=== PATIENT | male | born 1965 | race Caucasian/White ===

== ENCOUNTER 2022-12-11 16:44 | Outpatient (CLI) | payer OTHER, SELFPAY | END 2022-12-11 16:45 | disposition home or self-care (01) | LOC: AMB 12-14 12:37 | PROVIDERS: Visit Provider Family Medicine | DX: K92.0 Hematemesis (principal) | CPT/HCPCS: A0425; A0429 ==

== ENCOUNTER 2022-12-11 17:10 | Emergency (ER) | payer OTHER, SELFPAY ==
[2022-12-11 17:19] VITALS: BP 166/99; PULSE 96; TEMP 36.3; O2SAT 95; BMI 22.6
--- NOTE | 2022-12-11 17:44 | ED.GENADULT ---
HPI - General Adult General Chief complaint: Nausea/Vomiting Stated complaint: Vomiting Blood Time Seen by Provider: 12/11/22 17:23 Source: patient Mode of arrival: ambulatory Limitations: no limitations History of Present Illness HPI narrative: 57-year-old male presenting to the ER today complaining of hematemesis. States he has been vomiting for the last 3 days, about 3 times per day and also been having multiple episodes of diarrhea daily. Today he had a vomiting episode and there was specks of blood in his vomitus. He states that he ?does not know a lot of things but knows that if there is blood in your vomit, that is not good?. He denies any fevers or chills. He denies any dizziness or lightheadedness. He is not having any chest pain or shortness of breath. He states that 3 days ago he stopped his gabapentin cold turkey because he ran out of his prescription. He states that he takes 300 mg tablets, 8 tablets per day. 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 He also has hypertension and takes amitriptyline and atorvastatin. He denies any sick contacts or recent travel. States that since stopping the gabapentin he simply feels nauseated all the time. Looks like the patient last picked up 300 tablets of gabapentin 300 mg on October 26 and this was written as a 30 day supply.. Related Data Home Medications Medication Instructions Recorded Confirmed amitriptyline 50 mg tablet PO 12/11/22 atorvastatin 20 mg tablet 20 mg PO DAILY 12/11/22 12/11/22 gabapentin 300 mg capsule PO 12/11/22 Previous Rx's Medication Instructions Recorded gabapentin 300 mg capsule 600 mg (2 x 300 mg) PO QID 5 days 12/11/22 #40 caps Allergies Allergy/AdvReac Type Severity Reaction Status Date / Time No Known Drug Allergies Allergy Verified 12/11/22 17:23 Review of Systems Status of ROS: Reports: 10 or more systems reviewed and unremarkable except as noted in History and below Exam Narrative: Exam Narrative: Well-nourished well-developed patient in no acute distress. Alert and oriented x3. Answers questions appropriately. Mood and affect are appropriate. Thoughts are goal oriented and rational. No tangential or magical thinking noted. Patient speaks in full sentences without needing to catch his breath. HEENT: Pupil is round reactive to light on the left. 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 Extraocular muscles of the left are intact. Conjunctivae is moist without any icterus noted on the left. Dry mucous membranes. Posterior pharynx is normal. Neck is soft . Cardiovascular: Heart is regular rate and rhythm S1 and S2 are present without any murmurs. Lungs: Clear to auscultation bilaterally no wheezes rhonchi or rales are appreciated. Patient takes deep breaths without any discomfort. Abdomen: Soft and nontender nondistended with normal bowel sounds. Extremities: Bilateral lower extremities are without edema. Skin: Well perfused without any obvious rashes. Const: Vital Signs, click to edit/add: Vital Signs - 24 hr 12/11/22 17:19 Temperature 97.4 F L Pulse Rate [Pulse Oximeter] 96 Blood Pressure [Ri ght Upper Arm] 166/99 H Pulse Oximetry 95 Oxygen Delivery Me thod Room Air Course Course Hospital Course: Patient received a L of normal saline IV Zofran. 300 mg of gabapentin was also given. CBC unremarkable. Sodium slightly low, carbon dioxide slightly low. Lactate was elevated at 5.3. AST minimally elevated. Albumin and total protein slightly elevated. Alcohol elevated at 0.12.- patient does tell me that he had a beer and a shot of Pal Beam today. Patient received a total of 2 L of normal saline and Zofran. A repeat lactate was down to 5.2. He was feeling significantly better. He did not have any vomiting episodes while he was here. We discussed going forward I recommend that he refrain from drinking alcohol. I have also prescribed him a few days of gabapentin until he can follow up with primary care provider. Vital Signs Vital signs: Initial Vital Signs Temperature 97.4 F L 12/11/22 17:19 Temperature Source Temporal Artery Scan 12/11/22 17:19 Pulse Rate 96 12/11/22 17:19 Blood Pressure 166/99 H 12/11/22 17:19 Blood Pressure Mean 121 H 12/11/22 17:19 Blood Pressure Position Sitting 12/11/22 17:19 Pulse Oximetry 95 12/11/22 17:19 Oxygen Delivery Method Room Air 12/11/22 17:19 Vital Signs Temperature 97.4 F L 12/11/22 17:19 Pulse Rate 96 12/11/22 17:19 Blood Pressure 166/99 H 12/11/22 17:19 Pulse Oximetry 95 12/11/22 17:19 Oxygen Delivery Method Room Air 12/11/22 17:19 Temperature 97.4 F L 12/11/22 17:19 Pulse Rate 96 12/11/22 17:19 Blood Pressure 166/99 H 12/11/22 17:19 Pulse Oximetry 95 12/11/22 17:19 Oxygen Delivery Method Room Air 12/11/22 17:19 Medical Decision Making MDM Narrative Medical decision making narrative: 57-year-old male with vomiting, probable gabapentin withdrawal, elevated lactate alcohol use. Treated per above. Patient will be sent home with a prescription for gabapentin today and instructed to follow up with primary care provider. Recommended to refrain from alcohol use given his elevated lactate. Lab Data Lab results reviewed: Yes I reviewed the patient's lab results Labs: Lab Results 12/11/22 12/11/22 Range/Units 17:48 19:34 WBC 6.56 (4.50-11.00) K/uL RBC 4.70 (4.30-5.90) m/uL Hgb 15.3 (13.5-17.5) gm/dL Hct 45.1 (37.0-53.0) % MCV 96 (80-100) fL MCH 33 (26-34) pg MCHC 34 (32-36) gm/dL RDW Coeff of [place] 15.9 H (11.5-15.5) % Plt Count 176 (140-440) K/uL Neut % (Auto) 62.1 (42.0-72.0) % Lymph % (Auto) 28.0 (20-44) % [place] % (Auto) 8.1 (0.0-11.0) % Eos % (Auto) 1.1 (0.0-7.0) % Baso % (Auto) 0.5 (0.0-3.0) % Neut # (Auto) 4.08 (1.7-7.0) K/uL Lymph # (Auto) 1.84 (0.90-2.90) K/uL [place] # (Auto) 0.50 (0.00-0.90) K/UL Eos # (Auto) 0.07 (0.00-0.50) K/uL Baso # (Auto) 0.03 (0.00-0.30) K/uL ESR 7 (2-15) mm/hr Sodium 134 L (135-149) mmol/L Potassium 3.8 (3.6-5.1) mmol/L Chloride 98 (96-114) mmol/L Carbon Dioxide 18 L (20-32) mmol/L BUN 7 (7-30) mg/dL Creatinine 0.8 (0.5-1.5) mg/dL Estimated Creat Clear 91.51 Estimated GFR 103 ml/min Glucose 112 (60-115) mg/dL Lactate 5.3 H* 4.2 H* (0.5-1.9) mmol/L Calcium 9.5 (8.4-10.6) mg/dL Total Bilirubin 1.0 (0.1-1.5) mg/dL Direct Bilirubin 0.4 (0.0-0.5) mg/dL AST 44 H (12-35) U/L ALT 28 (4-50) U/L Alkaline Phosphatase 150 (40-150) U/L C-Reactive Protein 0.9 (0.5-1.0) mg/dL Total Protein 8.7 H (6.0-8.3) g/dL Albumin 5.2 H (3.3-5.0) g/dL Lipase 176 (23-300) U/L Ethyl Alcohol 0.12 H (0.01-0.03) % Discharge Plan Discharge Clinical Impression: Drug withdrawal, Vomiting, Dehydration Patient Disposition: Home, Self-Care Condition: Stable Additional Instructions: Follow-up with primary care provider soon as you can to discuss gabapentin use and refills. Refrain from using alcohol until vomiting has stopped. Increase water intake daily. Prescriptions: New gabapentin 300 mg capsule 600 mg PO QID 5 Days Qty: 40 0RF No Action atorvastatin 20 mg tablet 20 mg PO DAILY amitriptyline 50 mg tablet PO gabapentin 300 mg capsule PO Stand Alone Forms: [facility] Info Instructions
[2022-12-11] MEDS: 0.9 % SODIUM CHLORIDE 1000 ml 1,000 ML IV ×2 (18:02→19:04)
[2022-12-11] MEDS: ONDANSETRON 2 MG/ML inj 4 MG IVP (18:02)
[2022-12-11 18:06] LABS: Basophils Absolute Auto 0.03 K/uL (0.00-0.30); Basophils Percent Auto 0.5 % (0.0-3.0); Eosinophils Absolute Auto 0.07 K/uL (0.00-0.50); Eosinophils Percent Auto 1.1 % (0.0-7.0); Hematocrit 45.1 % (37.0-53.0); Hemoglobin* 15.3 gm/dL (13.5-17.5); Immature Granulocytes Abs Auto 0.01 K/uL (0.00-0.30); Immature Granulocytes Pct Auto 0.2 %; Lymphocytes Absolute Auto 1.84 K/uL (0.90-2.90); Mean Corpuscular HGB Conc 34 gm/dL (32-36); Mean Corpuscular Hemoglobin 33 pg (26-34); Mean Corpuscular Volume 96 fL (80-100); Monocytes Percent Auto 8.1 % (0.0-11.0); Neutrophils Absolute Auto 4.08 K/uL (1.7-7.0); Neutrophils Percent Auto 62.1 % (42.0-72.0); Platelet Count* 176 K/uL (140-440); RDW Coefficient of Variation % 15.9 % (11.5-15.5); White Blood Count* 6.56 K/uL (4.50-11.00)
[2022-12-11 18:13] LABS: Slide Review Reflex No
[2022-12-11] MEDS: GABAPENTIN 300 MG CAPSULE PO (18:13)
[2022-12-11 18:15] LABS: Lactate* 5.3 mmol/L (0.5-1.9)
[2022-12-11 18:24] LABS: Albumin* 5.2 g/dL (3.3-5.0); Chloride* 98 mmol/L (96-114)
[2022-12-11 18:25] LABS: Potassium* 3.8 mmol/L (3.6-5.1); Sodium* 134 mmol/L (135-149)
[2022-12-11 18:27] LABS: Creatinine* 0.8 mg/dL (0.5-1.5); Est. Creatinine Clearance* 91.51; Estimated Glomerular Filt Rate 103 ml/min
[2022-12-11 18:28] LABS: Alanine Aminotransferase* 28 U/L (4-50); Alkaline Phosphatase* 150 U/L (40-150); Aspartate Amino Transferase* 44 U/L (12-35); Bilirubin Direct* 0.4 mg/dL (0.0-0.5); Blood Urea Nitrogen* 7 mg/dL (7-30); Calcium* 9.5 mg/dL (8.4-10.6); Carbon Dioxide* 18 mmol/L (20-32); Glucose* 112 mg/dL (60-115); Lipase* 176 U/L (23-300); Total Protein* 8.7 g/dL (6.0-8.3)
[2022-12-11 18:29] LABS: Ethanol* 0.12 % (0.01-0.03)
[2022-12-11 18:31] LABS: C Reactive Protein* 0.9 mg/dL (0.5-1.0)
[2022-12-11 18:44] LABS: Erythrocyte SedimentationRate* 7 mm/hr (2-15)
[2022-12-11 19:41] LABS: Lactate* 4.2 mmol/L (0.5-1.9)
== END 2022-12-11 20:41 | disposition home or self-care (01) ==
PROVIDERS: Emergency Provider Family Medicine
DX: R11.10 Vomiting, unspecified (principal); E86.0 Dehydration; F11.23 Opioid dependence with withdrawal
CPT/HCPCS: 36415; 80048; 80076; 82077; 83605; 83690; 85025; 85651; 86140; 96374; 99283; 99284; A9270; J2405; J7030